=== PATIENT | male | born 1990 ===

== ENCOUNTER 2025-04-05 18:03 | Emergency (ER) | payer OTHER, MEDICAID ==
[~2025-04-05] VITALS: Ht 167.6 cm; Wt 95.0 kg
[2025-04-05 19:05] LABS: Hematocrit 47.0 % (41.0-53.0); Hemoglobin 16.1 g/dL (13.5-17.5); Mean Corpuscular Hemoglobin 29.9 pg (28.0-32.0); Mean Corpuscular Volume 87.5 fL (80.0-100.0); Nucleated Red Blood Cells % 0.0 %
[2025-04-05 19:19] LABS: Alanine Aminotransferase 31 U/L (7-40); Albumin 4.7 g/dL (3.2-4.8); Alkaline Phosphatase 77 U/L (46-116); Anion Gap 13 (5-15); BUN/Creatinine Ratio 13.7 (10.0-20.0); Bilirubin, Total 0.5 mg/dL (0.2-1.0); Blood Urea Nitrogen 18 mg/dL (9-23); Calcium 9.7 mg/dL (8.7-10.4); Carbon Dioxide 25 mmol/L (20-31); Chloride 102 mmol/L (98-107); Lipase 26 U/L (12-53); Potassium 4.1 mmol/L (3.5-5.1); Sodium 140 mmol/L (136-145); Total Protein 7.1 g/dL (5.7-8.2)
[2025-04-05 19:20] LABS: Glucose 113 mg/dL (74-106)
[2025-04-05 19:24] LABS: Lactic Acid w/Reflex 2.5 mmol/L (0.4-2.0)
--- NOTE | 2025-04-05 19:46 | ED.PDOC ---
GI ASSESSMENT HPI Comments 34-year-old male presents to the ED chief complaint abdominal pain. Patient reports status post vasectomy and last he notes since has been having abdominal pain, subjective fevers nausea, vomiting, diarrhea. He reports diffuse abdominal pain states one episode of vomiting which she states black vomit. States no one else sick at home he denies any recent travel. Denies chest pain, difficulty breathing, shortness breath. Chief Complaint: Abdominal Pain Time Seen by MD: 18:18 Reviewed Notes: Nurses Notes, Medications, Allergies Allergies: Coded Allergies: NO KNOWN ALLERGIES (Unverified , 04/05/25) Information Source: Patient Mode of Arrival: Ambulatory Past Medical History PAST MEDICAL HISTORY: Denies Surgical History: Denies all surgeries Family History Family History: Reviewed,noncontributory to illness Social History Smoker: Non-Smoker Alcohol: Denies ETOH Use Drugs: Denies Drug Use Gastrointestinal: reports: abdomen distended, abdominal pain, hematemesis, nausea, vomiting; denies: blood streaked bowels, constipated, diarrhea, dysphagia, difficulty swallowing, melena, poor appetite, poor fluid intake, rectal bleeding, rectal pain, others All Other Systems: Reviewed and Negative Physical Exam General Appearance: No Apparent Distress, Normal HEENT: Normal ENT Inspection, Pharynx Normal, TMs Normal Neck: Full Range of Motion, Non-Tender Respiratory: Lungs Clear, No Respiratory Distress, Normal Breath Sounds Cardiovascular: No Edema, No JVD, No Murmur, No Gallop, Normal Peripheral Pulses, Regular Rate/Rhythm Breast Exam: Deferred Gastrointestinal: Diffuse (Tenderness), No Organomegaly, No Pulsatile Mass, Normal Bowel Sounds, Soft Genitalia: Scrotum (Trace edema tenderness) Pelvic: Deferred Rectal: Deferred Extremities: Normal capillary refill, Normal inspection, Normal range of motion, Non-tender, No pedal edema Musculoskeletal : Apperance: Normal Neurologic: Alert, No Motor Deficits, Normal Affect, Normal Mood, No Sensory Deficits Cerebellar Function: Normal Reflexes: NOT DONE Skin: Dry, Normal Color, Warm Lymphatic: No Adenopathy Was a procedure done? Was a procedure done?: No GI differential Dx Differential Diagnosis: Appendicitis, Constipation, Diverticular disease, Gas troenteritis, Hernia, Urinary Obstruction, UTI, Urolithiasis, Food Poisoning, Bacterial, Viral X-Ray, Labs, Meds, VS Vital Signs Date Time Temp Pulse Resp B/P (MAP) Pulse Ox O2 Delivery O2 Flow Rate FiO2 04/05/25 20:10 100.4 116 19 111/73 (86) 95 100.4 04/05/25 20:10 116 19 95 Room Air 04/05/25 18:08 99.4 118 14 125/72 95 99.4 Lab Test 04/05/25 20:34 04/05/25 18:52 Range/Units Lactic Acid Level 2.6 *H 2.5 *H 0.4-2.0 mmol/L White Blood Count 11.3 H 4.4-10.8 10^3/uL Red Blood Count 5.38 4.5-5.90 10^6/uL Hemoglobin 16.1 13.5-17.5 g/dL Hematocrit 47.0 41.0-53.0 % Mean Corpuscular Volume 87.5 80.0-100.0 fL Mean Corpuscular Hemoglobin 29.9 28.0-32.0 pg Mean Corpuscular Hemoglobin Concent 34.1 32.0-36.0 g/dL Red Cell Distribution Width 15.1 H 11.8-14.3 % Platelet Count 262 140-450 10^3/uL Mean Platelet Volume 8.1 6.9-10.8 fL Neutrophils (%) (Auto) 88.9 H 37.0-80.0 % Lymphocytes (%) (Auto) 5.6 L 10.0-50.0 % Monocytes (%) (Auto) 5.0 0.0-12.0 % Eosinophils (%) (Auto) 0.0 0.0-7.0 % Basophils (%) (Auto) 0.5 0.0-2.0 % Neutrophils # (Auto) 10.0 H 1.6-8.6 10 ^3/uL Lymphocytes # (Auto) 0.6 0.4-5.4 10 ^3/uL Monocytes # (Auto) 0.6 0-1.3 10 ^3/uL Eosinophils # (Auto) 0 0-0.8 10 ^3/uL Basophils # (Auto) 0.1 0-0.2 10 ^3/uL Nucleated Red Blood Cells 0.0 % Sodium Level 140 136-145 mmol/L Potassium Level 4.1 3.5-5.1 mmol/L Chloride Level 102 98-107 mmol/L Carbon Dioxide Level 25 20-31 mmol/L Anion Gap 13 5-15 Blood Urea Nitrogen 18 9-23 mg/dL Creatinine 1.31 H 0.700-1.30 mg/dL Glomerular Filtration Rate Calc 72 >90 mL/min BUN/Creatinine Ratio 13.7 10.0-20.0 Serum Glucose 113 H 74-106 mg/dL Calcium Level 9.7 8.7-10.4 mg/dL Total Bilirubin 0.5 0.2-1.0 mg/dL Aspartate Amino Transferase (AST) 20 13-40 U/L Alanine Aminotransferase (ALT) 31 7-40 U/L Alkaline Phosphatase 77 46-116 U/L Total Protein 7.1 5.7-8.2 g/dL Albumin 4.7 3.2-4.8 g/dL Lipase 26 12-53 U/L Current Medications Medications (Trade) Dose Ordered Sig/Nicola Route Start Time Stop Time Status Last Admin Sodium Chloride 1,000 ml @ 1,000 mls/hr Q1H ONCE IV 04/05/25 19:15 04/05/25 20:14 DC 04/05/25 20:06 Ondansetron HCl (Zofran) 4 mg ONCE ONCE IV 04/05/25 19:15 04/05/25 19:16 DC 04/05/25 20:38 Famotidine (Pepcid Injection) 20 mg ONCE ONCE IV 04/05/25 19:15 04/05/25 19:16 DC 04/05/25 20:37 Sodium Chloride 1,000 ml @ 1,000 mls/hr Q1H ONCE IV 04/05/25 21:00 04/05/25 21:59 DC 04/05/25 21:58 Levofloxacin/ Dextrose 100 ml @ 100 mls/hr ONCE ONCE IV 04/05/25 21:00 04/05/25 21:59 DC 04/05/25 21:58 X-Ray, Labs, Meds, VS Comment IMPRESSION: Mild wall thickening of the lower esophagus which could reflect esophagitis. Scattered fluid-filled small and large bowel loops which may be physiologic or related to infectious or inflammatory enterocolitis. Hepatomegaly with diffuse hepatic steatosis. Nonobstructing left renal calculi. Time of 1ST Reevaluation: 18:30 Reevaluation 1ST: Unchanged Time of 2ND Reevaluation: 22:01 Reevaluation 2ND: Unchanged Patient Education/Counseling: Diagnosis, Treatment, Prognosis, Need For Follow Up Family Education/Counseling: Diagnosis, Treatment, Prognosis SEPSIS Sepsis Screen Date sepsis recognized/suspect: Apr 05, 2025 Time Sepsis recognized/suspect: 1810 Recent Procedure: No On Antibiotic Therapy: No Respiratory Rate >20: No Heart Rate >90: Yes Temp<36 C (96.8 F) or >38.3 C: No SBP <90 or MAP <65 mmHG: No New Acute Mental Status Change: No Is the patient on CPAP, BIPAP,: No Physician Orders Urinalysis (04/05/25 18:14) Ct Ab Pel Wo Con-No Oral Or Iv (04/05/25 19:11) Blood Culture (04/05/25 20:52) Vital Signs Date Time Temp Pulse Resp B/P (MAP) Pulse Ox O2 Delivery O2 Flow Rate FiO2 04/05/25 20:10 100.4 116 19 111/73 (86) 95 100.4 04/05/25 20:10 116 19 95 Room Air 04/05/25 18:08 99.4 118 14 125/72 95 99.4 Laboratory Tests Test 04/05/25 18:52 04/05/25 20:34 Lactic Acid Level 2.5 mmol/L (0.4-2.0) *H 2.6 mmol/L (0.4-2.0) *H White Blood Count 11.3 10^3/uL (4.4-10.8) H Medications Medications Dose Ordered Sig/Nicola Route Start Time Stop Time Status Last Admin Dose Admin Famotidine 20 mg ONCE ONCE IV 04/05/25 19:15 04/05/25 19:16 DC 04/05/25 20:37 Levofloxacin/ Dextrose 100 ml @ 100 mls/hr ONCE ONCE IV 04/05/25 21:00 04/05/25 21:59 DC 04/05/25 21:58 Ondansetron HCl 4 mg ONCE ONCE IV 04/05/25 19:15 04/05/25 19:16 DC 04/05/25 20:38 Sodium Chloride 1,000 ml @ 1,000 mls/hr Q1H ONCE IV 04/05/25 19:15 04/05/25 20:14 DC 04/05/25 20:06 Sodium Chloride 1,000 ml @ 1,000 mls/hr Q1H ONCE IV 04/05/25 21:00 04/05/25 21:59 DC 04/05/25 21:58 Departure 1 Departure Time of Disposition: 22:00 Impression: Primary Impression: Enterocolitis Additional Impression: Sepsis Qualified Codes: A41.9 - Sepsis, unspecified organism Disposition: ADMITTED INPATIENT Condition: Stable Discharged With: Significant Other Critical Care Note Critical Care Time?: No Stability Stability form required: CARLOINE Mccann Apr 05, 2025 19:46
[2025-04-05] MEDS: SODIUM CHLORIDE 0.9% 1,000 ML IV ONE ×2 (20:06→21:58)
--- NOTE | 2025-04-05 20:28 | DVH ---
CLINICAL HISTORY: left testicle and lower mid abd pain TECHNIQUE: CT of the abdomen and pelvis was performed without intravenous contrast. This exam was per formed according to our departmental dose optimization program. Up-to-date CT equipment and radiation dose reduction techniques are utilized as appropriate. 12.71 CTDI: 12.71 DLP: 12.71 WID: COMPARISON: None FINDINGS: Lower Thorax: Wall thickening of the lower esophagus. Normal-sized heart lung bases are clear. Liver and Biliary system: Hepatomegaly measuring 20 cm craniocaudal. Diffuse hepatic steatosis. No di screte hepatic lesion. Gallbladder is normal caliber. There is no biliary ductal dilatation. Spleen: Unremarkable. Adrenal Glands and Kidneys: Normal adrenal glands. Nonobstructing left renal calculi. No hydronephro sis in either kidney. Pancreas and Retroperitoneum: Unremarkable. Aorta and Major Vessels: Unremarkable. Bowel, Mesentery and Peritoneal space: Normal caliber small and large bowel. Scattered fluid containi ng small and large bowel loops. There is no free air or fluid collection. Pelvis: Unremarkable. Abdominal wall and Osseous Structures: No destructive osseous lesion. Small fat containing hiatal her umm. IMPRESSION: Mild wall thickening of the lower esophagus which could reflect esophagitis. Scattered fluid-filled small and large bowel loops which may be physiologic or related to infectious or inflammatory enterocolitis. Hepatomegaly with diffuse hepatic steatosis. Nonobstructing left renal calculi.
[2025-04-05] MEDS: FAMOTIDINE (10MG/ML) 2ML VL IV ONE (20:37)
[2025-04-05] MEDS: ONDANSETRON HCL 4 MG/2 ML VIAL IV ONE (20:38)
[2025-04-05] MEDS: PANTOPRAZOLE 40 MG/10 ML VIAL INJ IV ONE (23:10)
[2025-04-06 02:27] VITALS: BP 107/65; PULSE 84; RESP 18; TEMP 98.5; O2SAT 95
== END 2025-04-05 22:37 | disposition short-term general hospital (02) ==
LOC: ER 18:03
DX: K52.9 Noninfective gastroenteritis and colitis, unspecified (principal); A41.9 Sepsis, unspecified organism
CPT/HCPCS: 36415; 74176; 80053; 83605; 83690; 85025; 87040; 96361; 96365; 96367; 96375; 99285; J1956; J2405; J2470; J3490; J7030